=== PATIENT | female | born 1970 | race Caucasian/White ===

== ENCOUNTER 2016-11-24 14:47 | Outpatient (CLI) | payer OTHER | END 2016-11-24 14:48 | disposition home or self-care (01) | DX: E11.9 Type 2 diabetes mellitus without complications (principal); Z79.899 Other long term (current) drug therapy ==

== ENCOUNTER 2016-12-26 15:01 | Outpatient (CLI) | payer OTHER | END 2016-12-26 15:02 | disposition home or self-care (01) | DX: R25.2 Cramp and spasm (principal) ==

== ENCOUNTER 2017-04-07 14:50 | Outpatient (CLI) | payer OTHER ==
--- NOTE | 2017-04-07 15:55 | XRAY Report ---
THREE VIEW LEFT FOOT: 04/07/2017 CLINICAL INDICATION: Plantar pain. FINDINGS: AP, lateral, and oblique views of the left foot demonstrate no evidence of fracture or dis location. Minimal osteoarthritic changes are seen at the 1st metatarsophalangeal joint. No radiopaque foreign body is seen in the soft tissues. IMPRESSION: MINIMAL OSTEOARTHRITIS. NO EVIDENCE OF FRACTURE. JOB #: [id number] EXT JOB #:[id number]
== END 2017-04-07 14:51 | disposition home or self-care (01) ==
LOC: DI 14:50
PROVIDERS: ATTEND Podiatrist
DX: M19.072 Primary osteoarthritis, left ankle and foot (principal)

== ENCOUNTER 2017-04-12 08:26 | Outpatient (CLI) | payer OTHER ==
--- NOTE | 2017-04-12 15:24 | MRI Report ---
EXAM: LEFT MIDFOOT MRI WITHOUT CONTRAST EXAM DATE: 04/12/2017 09:54 AM. CLINICAL HISTORY: SWELLING, CHANGE IN SHAPE OF LT FOOT, DOI [id number]. COMPARISON: Left foot series 04/07/2017. TECHNIQUE: Multiplanar, multisequence T1-weighted and fluid-sensitive sequences of the midfoot withou t contrast. Other: Marker over site of pain corresponding to the dorsal and medial midfoot. FINDINGS: Images are degraded by patient motion artifacts. Bones: No fractures or subluxations. No marrow edema. No bone lesions. Articular Cartilage: Unremarkable. Ligaments: The visualized intertarsal, intermetatarsal, and tarsometatarsal ligaments are intact. Thi s includes the Lisfranc ligament. The visualized collateral ligaments are intact. Tendons: The flexor and extensor tendons are unremarkable. Musculature: Nonspecific diffuse mild edema and moderate fatty atrophy of small muscles of the foot, can be due to myopathy and neuropathy, less likely inflammatory myositis. Other: No effusions. The visualized portion of the tarsal tunnel is unremarkable. No intermetatarsal bursitis. Nonspecific mild subcutaneous edema in the dorsum of foot. No focal mass, hematoma or absce ss. IMPRESSION: 1. Nonspecific diffuse mild edema and moderate fatty atrophy of small muscles of the foot, can be due to myopathy and neuropathy, less likely inflammatory myositis. 2. Nonspecific mild subcutaneous edema in the dorsum of foot. No focal mass, hematoma or abscess. 3. No other significant abnormality. Ligaments and tendons are intact. No fractures or marrow edema. [facility] MUSCULOSKELETAL RADIOLOGY SECTION Referring Provider Line: [phone] SITE ID: [id number]
== END 2017-04-12 08:27 | disposition home or self-care (01) ==
LOC: DI 08:26
PROVIDERS: ATTEND Podiatrist
DX: M79.89 Other specified soft tissue disorders (principal); M62.572 Muscle wasting and atrophy, not elsewhere classified, left ankle and foot

== ENCOUNTER 2017-06-24 08:26 | Outpatient (CLI) | payer OTHER ==
--- NOTE | 2017-06-24 19:59 | Ultrasound Report ---
EXAM: ABDOMEN ULTRASOUND LIMITED EXAM DATE: 06/24/2017 08:59 AM. CLINICAL HISTORY: RUQ ABDOMINAL SWELLING, MASS OR LUMP. COMPARISON: None. TECHNIQUE: Real-time scanning was performed with static images obtained. FINDINGS: The palpated abnormality corresponds to a subcutaneous avascular nodule measuring 0.6 x 0.4 x 0.6 cm, minimally hypoechoic compared to surrounding fat. No fluid collection, suspicious mass, or tissue pl ane disruption. IMPRESSION: Lipoma. [facility] Referring Provider Line: [phone] SITE ID: [id number]
== END 2017-06-24 08:27 | disposition home or self-care (01) ==
LOC: DI 08:26
PROVIDERS: ATTEND Physician Assistant Medical
DX: D17.1 Benign lipomatous neoplasm of skin and subcutaneous tissue of trunk (principal)
CPT/HCPCS: 76705

== ENCOUNTER 2017-07-28 16:08 | Outpatient (CLI) | payer OTHER ==
--- NOTE | 2017-08-01 12:46 | Mammography Report ---
DIGITAL SCREENING MAMMOGRAM: 07/28/2017 CLINICAL INDICATION: A 47-year-old with history of late childbearing, family history of breast cance r for screening. COMPARISON: 07/2016, 07/2015, 05/2014, 04/2013, 01/2010 TECHNIQUE: Routine CC and MLO projections were obtained of the breasts. FINDINGS: The breasts again demonstrate scattered fibroglandular densities bilaterally. Punctate, t ypically benign calcifications are present. No suspicious masses, clustered microcalcifications, or regions of architectural distortion are identified. IMPRESSION: BENIGN FINDINGS. RECOMMENDATION: Routine annual screening unless otherwise clinically indicated. BIRADS CATEGORY 2 - BENIGN FINDINGS. STANDARD QUALIFYING STATEMENTS 1. This examination was reviewed with the aid of Computer-Aided Detection (CAD). 2. A negative or benign imaging report should not delay biopsy if clinically suspicious findings are present. Consider surgical consultation if warranted. More than 5% of cancers are not identified by i maging. 3. Dense breasts may obscure an underlying neoplasm. JOB #: [id number] EXT JOB #:[id number]
== END 2017-07-28 16:09 | disposition home or self-care (01) ==
LOC: DI.N 16:08
PROVIDERS: ATTEND Physician Assistant Medical
DX: Z12.31 Encounter for screening mammogram for malignant neoplasm of breast (principal); Z80.3 Family history of malignant neoplasm of breast
CPT/HCPCS: 77067

== ENCOUNTER 2017-10-06 08:48 | Outpatient (CLI) | payer OTHER ==
[2017-10-06 12:37] LABS: BASOPHILS # (AUTO) 0.1 10^3/uL (0.0-0.1); BASOPHILS % (AUTO) 0.8 %; EOSINOPHILS # (AUTO) 0.1 10^3/uL (0.0-0.7); EOSINOPHILS % (AUTO) 1.7 %; HGB - HEMOGLOBIN 11.8 g/dL (12.0-16.0); LYMPHOCYTES # (AUTO) 2.5 10^3/uL (1.5-3.5); LYMPHOCYTES % (AUTO) 34.4 %; MEAN CORPUSCULAR HEMOGLOBIN 29.6 pg (27.0-31.0); MEAN CORPUSCULAR HGB CONC 34.3 g/dL (32.0-36.0); MEAN CORPUSCULAR VOLUME 86.3 fL (81.0-99.0); MEAN PLATELET VOLUME 8.6 fL (7.9-10.8); MONOCYTES # (AUTO) 0.5 10^3/uL (0.0-1.0); MONOCYTES % (AUTO) 7.3 %; NEUTROPHILS # (AUTO) 4.1 10^3/uL (1.5-6.6); NEUTROPHILS % (AUTO) 55.8 %; PLT - PLATELET COUNT 289 10^3/uL (130-450); RED BLOOD COUNT 3.97 10^6/uL (4.20-5.40); RED CELL DISTRIBUTION WIDTH 13.7 % (12.0-15.0); WHITE BLOOD COUNT 7.4 x10^3/uL (4.8-10.8)
[2017-10-06 12:42] LABS: HB2 TOTAL 12.5 g/dL; HEMOGLOBIN A1C 0.63 g/dL; HEMOGLOBIN A1C % 6.8 % (4.6-6.2)
[2017-10-06 12:43] LABS: ALBUMIN/GLOBULIN RATIO 1.2 (1.0-2.2); ALKALINE PHOSPHATASE 47 IU/L (42-121); ALT ALANINE AMINOTRANSFERASE 20 IU/L (10-60); AST ASPARTATE AMINOTRANSFERASE 20 IU/L (10-42); BILIRUBIN,TOTAL 0.3 mg/dL (0.2-1.0); BUN - BLOOD UREA NITROGEN 19 mg/dL (6-20); CALCIUM 8.6 mg/dL (8.5-10.3); CARBON DIOXIDE - CO2 24 mmol/L (21-32); CHLORIDE 105 mmol/L (101-111); CHOL/HDL RATIO 4.1 (<4.4); CHOLESTEROL 163 mg/dL; CREATININE 0.9 mg/dL (0.4-1.0); GFR - MDRD 67 (>89); GLUCOSE 149 mg/dL (70-100); HDL CHOLESTEROL 40 mg/dL; LDL CHOLESTEROL,CALCULATED 84 mg/dL; LDL/HDL RATIO 2.1 (<4.4); SODIUM 136 mmol/L (135-145); TOTAL PROTEIN 7.4 g/dL (6.7-8.2); VLDL CHOLESTEROL 39 mg/dL
== END 2017-10-06 08:49 | disposition home or self-care (01) ==
LOC: LAB.N 08:48
PROVIDERS: ATTEND Physician Assistant Medical
DX: Z00.00 Encounter for general adult medical examination without abnormal findings (principal); E13.8 Other specified diabetes mellitus with unspecified complications; Z79.899 Other long term (current) drug therapy; E78.2 Mixed hyperlipidemia
CPT/HCPCS: 36415; 80053; 80061; 83036; 83721; 84443; 85025

== ENCOUNTER 2018-01-26 09:21 | Outpatient (CLI) | payer BC, OTHER ==
[2018-01-26 13:37] LABS: HB2 TOTAL 13.4 g/dL; HEMOGLOBIN A1C 0.83 g/dL; HEMOGLOBIN A1C % 7.8 % (4.6-6.2)
== END 2018-01-26 09:22 | disposition home or self-care (01) ==
LOC: LAB.N 09:21
PROVIDERS: ATTEND Physician Assistant Medical
DX: E11.9 Type 2 diabetes mellitus without complications (principal); Z79.899 Other long term (current) drug therapy
CPT/HCPCS: 36415; 82947; 83036

== ENCOUNTER 2018-08-29 13:30 | Outpatient (CLI) | payer BC ==
--- NOTE | 2018-08-30 08:28 | Mammography Report ---
Reason: MAMMOGRAPHIC SCREENING FOR BREAST CANCER Procedure Date: 08/29/2018 Accession Number: [id number] / [id number] Procedure: [facility] - Screening Mammo Dig Bilat CPT Code: FULL RESULT: EXAM: Screening Mammo Dig Bilat DATE: 08/29/2018 1:44 PM CLINICAL HISTORY: Screening. Family history breast cancer mother age 64. No reported personal history of breast cancer. TECHNIQUE: Bilateral CC and MLO views were obtained. COMPARISON: 07/28/2017 through 06/09/2014 FINDINGS: The breasts demonstrate scattered fibroglandular densities bilaterally. Bilateral breasts: There are no suspicious masses, calcifications or areas of distortion. IMPRESSION: Negative examination RECOMMENDATION: Routine annual screening unless otherwise clinically indicated. BI-RADS CATEGORY 1: Negative STANDARD QUALIFYING STATEMENTS: 1. This examination was reviewed with the aid of Computer-Aided Detection (CAD). 2. A negative or benign imaging report should not preclude biopsy if clinically suspicious findings are present. 3. Dense breasts may obscure an underlying neoplasm. 4. This examination was reviewed without the aid of 3D breast imaging (tomosynthesis).
== END 2018-08-29 13:31 | disposition home or self-care (01) ==
LOC: DI.N 13:30
PROVIDERS: ATTEND Physician Assistant Medical
DX: Z12.31 Encounter for screening mammogram for malignant neoplasm of breast (principal); Z80.3 Family history of malignant neoplasm of breast
CPT/HCPCS: 77067

== ENCOUNTER 2019-02-07 17:03 | Outpatient (CLI) | payer BC ==
--- NOTE | 2019-02-07 18:08 | Ultrasound Report ---
Reason: DYSMENORRHEA, SEVERE Procedure Date: 02/07/2019 Accession Number: [id number] / [id number] Procedure: US - Pelvic w/Transvaginal CPT Code: FULL RESULT: EXAM: PELVIC ULTRASOUND EXAM DATE: 02/07/2019 05:41 PM. CLINICAL HISTORY: Severe dysmenorrhea. Perimenopausal. COMPARISON: None. TECHNIQUE: Realtime transabdominal pelvic scan performed to identify the uterus and adnexa and as an overview of other pelvic structures, followed by transvaginal scan to provide greater detail of the uterus and adnexa, with static image documentation. FINDINGS: Uterus: 8.6 x 4.8 x 6.1 cm, volume 132 cc. Anteverted position. Normal overall size and echotexture. Masses: None. Endometrium: 18 mm. Mildly prominent endometrial echo complex present. Suboptimal visualization secondary to uterine position. No definite focal mass. Cervix: Unremarkable. Right Ovary: Obscured by bowel gas. Left Ovary: Obscured by bowel gas. Free Fluid: None. Other: None. IMPRESSION: 1. Prominent endometrial echo complex measuring 18 mm and suboptimally visualized. No definite focal mass. Attention on sonographic follow-up or pelvic MRI suggested in this premenopausal patient. 2. Ovaries obscured by bowel gas bilaterally. [facility]
== END 2019-02-07 17:04 | disposition home or self-care (01) ==
LOC: DI 17:03
PROVIDERS: ATTEND Registered Nurse
DX: N94.6 Dysmenorrhea, unspecified (principal)
CPT/HCPCS: 76830; 76856

== ENCOUNTER 2019-10-16 15:40 | Outpatient (CLI) | payer OTHER ==
--- NOTE | 2019-10-17 09:35 | Mammography Report ---
Reason: ROUTINE MAMMO Procedure Date: 10/16/2019 Accession Number: [id number] / [id number] Procedure: MGN - Screening Mammo Dig Bilat CPT Code: Final Report FULL RESULT: EXAM: Screening Mammo Dig Bilat DATE: 10/16/2019 4:02 PM CLINICAL HISTORY: Mother with breast cancer. Routine screening TECHNIQUE: (B) - Bilateral CC and MLO views were obtained. COMPARISON: 08/29/2018, 07/28/2017, 07/22/2016, 07/23/2015, 06/09/2014 and 05/06/2013. PARENCHYMAL PATTERN: (A) - The breasts demonstrate scattered fibroglandular densities bilaterally. FINDINGS: No significant interval change. There are no suspicious masses, calcifications, or areas of distortion. IMPRESSION: Negative examination. BI-RADS category 1. RECOMMENDATION: (ANNUAL) - Recommend routine annual screening mammography. BI-RADS CATEGORY: (1) - Negative. STANDARD QUALIFYING STATEMENTS: 1. This examination was not reviewed with the aid of Computer-Aided Detection (CAD). 2. A negative or benign imaging report should not preclude biopsy if clinically suspicious findings are present. 3. Dense breasts may obscure an underlying neoplasm. 4. This examination was reviewed without the aid of 3D breast imaging (tomosynthesis).
== END 2019-10-16 15:41 | disposition home or self-care (01) ==
LOC: DI.N 15:40
DX: Z12.31 Encounter for screening mammogram for malignant neoplasm of breast (principal); Z80.3 Family history of malignant neoplasm of breast
CPT/HCPCS: 77067

== ENCOUNTER 2021-12-17 08:00 | Outpatient (CLI) | payer OTHER | END 2021-12-17 23:59 | disposition home or self-care (01) | LOC: LAB.R 08:00 | PROVIDERS: ATTEND Podiatrist | DX: E11.622 Type 2 diabetes mellitus with other skin ulcer (principal) | CPT/HCPCS: 87070; 87205 ==

== ENCOUNTER 2022-03-10 08:00 | Outpatient (CLI) | payer OTHER | END 2022-03-10 23:59 | disposition home or self-care (01) | LOC: LAB.R 08:00 | PROVIDERS: ATTEND Podiatrist | DX: E11.622 Type 2 diabetes mellitus with other skin ulcer (principal) | CPT/HCPCS: 87070; 87077; 87205 ==